=== PATIENT | female | born 1950 | race Hispanic/Latino ===

== ENCOUNTER 2017-08-04 07:31 | Day surgery (SDC) | payer BC, MEDICARE ==
[2017-08-04 07:49] VITALS: BMI 28.3
[2017-08-04] MEDS ORDERED: Sodium Chloride 0.9% 1,000 ML IV STA (08:19)
[2017-08-04] MEDS ORDERED: Morphine 4 MG/ML VIAL ONE (08:45)
[2017-08-04] MEDS ORDERED: Sodium Chloride 0.9% 1,000 ML ONE (08:46)
[2017-08-04 09:03] LABS: BASO # 0.1 K/uL (0.0-0.2); BASO % 0.5 % (0.0-2.0); EOS % 0.2 % (0.0-4.0); LYMPH # 1.5 K/uL (1.0-4.3); LYMPH % 10.7 % (20.0-40.0); MEAN CELL VOLUME 90.8 fL (81.0-99.0); MEAN CORPUSCULAR HEMOGLOBIN 30.8 pg (27.0-31.0); MEAN CORPUSCULAR HGB CONC 33.9 g/dL (33.0-37.0); MEAN PLATELET VOLUME 7.9 fL (7.2-11.7); MONO # 1.6 K/uL (0.0-0.8); MONO % 11.2 % (0.0-10.0); NEUT # 10.8 K/uL (1.8-7.0); NEUT % 77.4 % (50.0-75.0); RBC 4.22 Mil/uL (3.80-5.20); RED CELL DISTRIBUTION WIDTH 13.5 % (11.5-14.5); WHITE BLOOD COUNT 13.9 K/uL (4.8-10.8)
--- NOTE | 2017-08-04 09:15 | C.PDOC ---
History Of Present Illness Patient with history of renal artery stenosis and kidney stones presents to ED with c/o right flank pain x 3 days, radiating to the right groin and vagina. Pt denies any injury. Pt was trying Tylenol with minimal improvement. Patient reports vomiting and denies dysuria, diarrhea or any other complaints at this time. Time Seen by Provider: 08/04/17 07:57 Chief Complaint (Nursing): Female Genitourinary History Per: Patient History/Exam Limitations: no limitations Onset/Duration Of Symptoms: Days Current Symptoms Are (Timing): Still Present Location Of Pain/Discomfort: Other (right flank) Past Medical History Reviewed: Historical Data, Nursing Documentation, Vital Signs Vital Signs: Last Vital Signs Temp 98.6 F 08/04/17 13:27 Pulse 68 08/04/17 13:27 Resp 18 08/04/17 13:27 BP 108/66 08/04/17 13:27 Pulse Ox 98 08/04/17 14:02 - Medical History PMH: Anxiety, Depression, Gastrointestinal Ulcer, HTN, Kidney Stones, Chronic Kidney Disease (blockage in kidney opened by balloon) Surgical History: No Surg Hx Denies: Pacemaker - [facility] Procedures CLOSED ENDOSCOPIC BIOPSY OF LARGE INTESTINE (10/02/14) EXCIS KNEE SEMILUN CARTL (06/30/05) MAGNETIC RESONANCE IMAGING OF MUSCULOSKELETAL (08/31/99) OTHER REPAIR OF KNEE (06/30/05) PHYSICAL THERAPY NEC (09/10/99) Family History: States: No Known Family Hx - Social History Hx Alcohol Use: Yes (SOCIALLY) Hx Substance Use: No - Immunization History Hx Tetanus Toxoid Vaccination: No Hx Influenza Vaccination: Yes Hx Pneumococcal Vaccination: No Review Of Systems Constitutional: Negative for: Fever, Chills Gastrointestinal: Positive for: Vomiting. Negative for: Abdominal Pain Genitourinary: Negative for: Dysuria, Hematuria Musculoskeletal: Positive for: Other (Flank pain ) Skin: Negative for: Rash Physical Exam - Physical Exam Appears: Non-toxic, No Acute Distress Skin: Warm, Dry, No Rash Head: Atraumatic, Normacephalic Oral Mucosa: Moist Neck: Supple Cardiovascular: Rhythm Regular Respiratory: Normal Breath Sounds, No Rales, No Rhonchi, No Wheezing Gastrointestinal/Abdominal: Soft, No Tenderness, No Guarding, No Rebound Back: No CVA Tenderness Extremity: Normal ROM, Capillary Refill (<2 seconds) Neurological/Psych: Oriented x3 ED Course And Treatment - Laboratory Results Result Diagrams: 08/04/17 08:58 08/04/17 08:58 O2 Sat by Pulse Oximetry: 98 (RA) Pulse Ox Interpretation: Normal - CT Scan/US CT abdomen/pelvis Other Rad Studies (CT/US): Read By Radiologist, Radiology Report Reviewed CT/US Interpretation: Accession No. : [id number]. Patient Name / ID : NATASHA Lockhart / [id number]. Exam Date : 08/04/2017 09:03:41 ( Approved ) . Study Comment : Sex / Age : F / 67Y. Creator : Gilson Del Valle MD. Dictator : Gilson Del Valle MD. Fish And Wildlife Technician : Production Manufacturing Worker : Gilson Del Valle MD. Approver2 : Report Date : 08/04/2017 11:13:47. My Comment : . PROCEDURE: CT Abdomen and Pelvis without intravenous contrast. HISTORY: right flank pain. COMPARISON: None. TECHNIQUE: Without contrast.. Contrast Dose: 0. Radiation dose: Total exam DLP = 834.23 mGy-cm. This CT exam was performed using one or more of the following dose reduction techniques: Automated exposure control, adjustment of the mA and/or kV according to patient size, and/or use of iterative reconstruction technique. FINDINGS: LOWER THORAX : Unremarkable. LIVER: Unremarkable. No gross lesion or ductal dilatation. GALLBLADDER AND BILE DUCTS: Mildly thickened wall, nonspecific. No calcified gallstones. No pericholecystic fluid. PANCREAS: Unremarkable. No gross lesion or ductal dilatation. SPLEEN: Unremarkable. ADRENALS: Unremarkable. No mass. KIDNEYS AND URETERS: Mild right hydronephrosis. No renal calculus. No mass. Mild right hydroureter. There is a 3-4 mm calculus at the right ureterovesical junction with mild hydroureter. Multiple pelvic phleboliths are also noted. Multifocal cortical scarring in left kidney. Multiple calcifications in left kidney, likely parenchymal. No hydronephrosis. VASCULATURE: Unremarkable. No aortic aneurysm. BOWEL: Unremarkable. No obstruction. No gross mural thickening. Moderate retained feces. APPENDIX: Not positively identified. No secondary findings to suggest acute appendicitis. PERITONEUM: Unremarkable. No free fluid. No free air. LYMPH NODES: Unremarkable. No enlarged lymph nodes. BLADDER: Nondistended. REPRODUCTIVE: Unremarkable uterus. BONES: No acute fracture. OTHER FINDINGS: None. IMPRESSION: Probable obstructing 3-4 mm calculus at the right ureterovesical junction with mild right hydroureteronephrosis. Multifocal left renal cortical scarring and probable parenchymal calcifications. Nonspecific. Mild nonspecific thickening of gallbladder wall without calcified stones. Please correlate clinically. Retained feces. Progress Note: Plan: plan: labs, UA, CT w/o constrast. Case was d/Joaquin who came to ED and evaluated patient at [facility]. Patient with 3 days of renal colic symptoms, underlying kidney abnormalities and ? UTI will need stent placement. Accepted by to the same day surgery. Disposition - Disposition Disposition: HOSPITALIZED Disposition Time: 14:02 Condition: STABLE - Clinical Impression Clinical Impression: Renal colic on right side - PA / ACLS NURSE / Resident Statement MD/DO has reviewed & agrees with the documentation as recorded. - Scribe Statement The provider has reviewed the documentation as recorded by the Maricarmen Gan All medical record entries made by the Maricarmen were at my direction and personally dictated by me. I have reviewed the chart and agree that the record accurately reflects my personal performance of the history, physical exam, medical decision making, and the department course for this patient. I have also personally directed, reviewed, and agree with the discharge instructions and disposition. Decision To Admit - Pt Status Changed To: Hospital Disposition Of: SDS- Endo,OR,Cath,IR - . Bed Request Type: Same Day Surgery Admitting Physician: Danni Ruiz Patient Diagnosis: Renal colic on right side
[2017-08-04 09:20] LABS: ALB/GLOB RATIO 1.1 (1.0-2.1); ALBUMIN 3.8 g/dL (3.5-5.0); CALCIUM 8.5 mg/dl (8.6-10.4)
[2017-08-04 10:54] LABS: URINE BILIRUBIN NEGATIVE (NEGATIVE); URINE BLOOD 3+ (NEGATIVE); URINE CLARITY Clear (Clear); URINE COLOR Straw (YELLOW); URINE GLUCOSE (UA) NORMAL (Normal); URINE LEUKOCYTE ESTERASE 1+ Leu/uL (Negative); URINE NITRATE NEGATIVE (NEGATIVE); URINE PROTEIN NEGATIVE (NEGATIVE); URINE UROBILINOGEN NORMAL mg/dL (0.2-1.0)
--- NOTE | 2017-08-04 11:15 | CT ---
PROCEDURE: CT Abdomen and Pelvis without intravenous contrast HISTORY: right flank pain COMPARISON: None. TECHNIQUE: Without contrast.. Contrast Dose: 0 Radiation dose: Total exam DLP = 834.23 mGy-cm. This CT exam was performed using one or more of the following dose reduction techniques: Automated exposure control, adjustment of the mA and/or kV according to patient size, and/or use of iterative reconstruction technique. FINDINGS: LOWER THORAX: Unremarkable. LIVER: Unremarkable. No gross lesion or ductal dilatation. GALLBLADDER AND BILE DUCTS: Mildly thickened wall, nonspecific. No calcified gallstones. No pericholecystic fluid. PANCREAS: Unremarkable. No gross lesion or ductal dilatation. SPLEEN: Unremarkable. ADRENALS: Unremarkable. No mass. KIDNEYS AND URETERS: Mild right hydronephrosis. No renal calculus. No mass. Mild right hydroureter. There is a 3-4 mm calculus at the right ureterovesical junction with mild hydroureter. Multiple pelvic phleboliths are also noted. Multifocal cortical scarring in left kidney. Multiple calcifications in left kidney, likely parenchymal. No hydronephrosis. VASCULATURE: Unremarkable. No aortic aneurysm. BOWEL: Unremarkable. No obstruction. No gross mural thickening. Moderate retained feces. APPENDIX: Not positively identified. No secondary findings to suggest acute appendicitis. PERITONEUM: Unremarkable. No free fluid. No free air. LYMPH NODES: Unremarkable. No enlarged lymph nodes. BLADDER: Nondistended REPRODUCTIVE: Unremarkable uterus. BONES: No acute fracture. OTHER FINDINGS: None. IMPRESSION: Probable obstructing 3-4 mm calculus at the right ureterovesical junction with mild right hydroureteronephrosis. Multifocal left renal cortical scarring and probable parenchymal calcifications. Nonspecific. Mild nonspecific thickening of gallbladder wall without calcified stones. Please correlate clinically. Retained feces.
[2017-08-04] MEDS ORDERED: cefTRIAXone IV 1 gm in Dextros 0 ML IVPB ONE (14:20)
[2017-08-04] MEDS ORDERED: Iohexol 240 (50 ml) ONE (14:20)
[2017-08-04] MEDS ORDERED: Lidocaine 2% Jelly (Uro-Jet) ONE (14:21)
[2017-08-04] MEDS ORDERED: Lactated Ringer's 1,000 ML IV ONE (15:02)
[2017-08-04] MEDS ORDERED: Propofol 10 mg/ml Inj (20 ML) ONE ×2 (15:09)
[2017-08-04] MEDS ORDERED: Midazolam 2 MG/2 ML VIAL ONE (15:09)
[2017-08-04] MEDS ORDERED: HYDROmorphone 0.5 mg/0.5 ml ISec IVP PRN (15:15)
--- NOTE | 2017-08-04 15:31 | RAD ---
HISTORY: renal colic COMPARISON: CT abdomen pelvis without oral or IV contrast performed 08/04/17 FINDINGS: BOWEL: Nonspecific bowel gas pattern. BONES: Osseous demineralization. Degenerative changes. Tiny calcifications within the left upper quadrant measuring maximally 2 mm, consistent with renal calculi. OTHER FINDINGS: Numerous pelvic calcifications, likely phleboliths. Surgical clips noted at the level of the left L3 vertebral body. IMPRESSION: Tiny calcifications within the left upper quadrant measuring maximally 2 mm, consistent with renal calculi.
--- NOTE | 2017-08-04 15:46 | CP.PCM.CON ---
Past Patient History - Tetanus Immunizations Tetanus Immunization: Unknown - Past Social History Smoking Status: Never Smoked - CARDIAC Hx Hypertension: Yes Hx Pacemaker: No - NEUROLOGICAL Hx Paralysis: No - RENAL Hx Chronic Kidney Disease: Yes (blockage in kidney opened by balloon) Hx Kidney Stones: Yes - HEMATOLOGICAL/ONCOLOGICAL Hx Blood Transfusions: No - MUSCULOSKELETAL/RHEUMATOLOGICAL Hx Musculoskeletal Disorders: No - GASTROINTESTINAL Hx Constipation: Yes Hx Irritable Bowel: Yes - PSYCHIATRIC Hx Anxiety: Yes Hx Depression: Yes Hx Substance Use: No - SURGICAL HISTORY Hx Surgeries: Yes (kidney balloon) - ANESTHESIA Hx Anesthesia: Yes Hx Anesthesia Reactions: No Hx Malignant Hyperthermia: No Meds Allergies/Adverse Reactions: Allergies Allergy/AdvReac Type Severity Reaction Status Date / Time No Known Allergies Allergy Verified 08/04/17 07:43 - Medications Medications: Current Medications Hydromorphone HCl (Dilaudid) 0.5 mg IVP Q10M PRN PRN Reason: Pain, moderate (4-7) Stop: 08/04/17 17:15 Results - Vital Signs Recent Vital Signs: Last Vital Signs Temp 97.9 F 08/04/17 14:37 Pulse 75 08/04/17 14:37 Resp 20 08/04/17 14:37 BP 110/70 08/04/17 14:37 Pulse Ox 98 08/04/17 14:39 - Labs Result Diagrams: 08/04/17 08:58 08/04/17 08:58 Labs: Laboratory Results - last 24 hr 08/04/17 08/04/17 08/04/17 08:58 08:58 10:41 WBC 13.9 H RBC 4.22 Hgb 13.0 Hct 38.4 MCV 90.8 MCH 30.8 MCHC 33.9 RDW 13.5 Plt Count 346 MPV 7.9 Neut % (Auto) 77.4 H Lymph % (Auto) 10.7 L [place] % (Auto) 11.2 H Eos % (Auto) 0.2 Baso % (Auto) 0.5 Neut # 10.8 H Lymph # 1.5 Gulf # 1.6 H Eos # 0.0 Baso # 0.1 Sodium 130 L Potassium 4.2 Chloride 96 L Carbon Dioxide 26 Anion Gap 11 BUN 21 H Creatinine 1.5 H Est GFR ( Amer) 42 Est GFR (Non-Af Amer) 35 Random Glucose 123 H Calcium 8.5 L Total Bilirubin 0.8 AST 32 ALT 27 Alkaline Phosphatase 48 Total Protein 7.3 Albumin 3.8 Globulin 3.4 Albumin/Globulin Ratio 1.1 Lipase 45 Urine Color Straw Urine Clarity Clear Urine pH 6.0 Ur Specific [place] 1.004 Urine Protein Negative Urine Glucose (UA) Normal Urine Ketones Negative Urine Blood 3+ H Urine Nitrate Negative Urine Bilirubin Negative Urine Urobilinogen Normal Ur Leukocyte Esterase 1+ H Urine WBC (Auto) 6 H Urine RBC (Auto) 22 H
--- NOTE | 2017-08-04 15:49 | PCM.SURG1 ---
Surgeon's Initial Post Op Note - Surgeon's Notes Surgeon: Magalys Ruiz Ctc Operator: none Type of Anesthesia: General Mask Pre-Operative Diagnosis: R RENAL COLIC Operative Findings: R HYDRONEPHROSIS Post-Operative Diagnosis: SAME Operation Performed: CYSTO, BILAT RTG PYELOGRAM, R STENT INSERTION Specimen/Specimens Removed: URINE Estimated Blood Loss: EBL {In ML}: 0 Blood Products Given: N/A Post-Op Condition: Good Date of Surgery/Procedure: 08/04/17 Time of Surgery/Procedure: 15:55
[2017-08-04 17:28] VITALS: RESP 18; O2SAT 100
[2017-08-04 18:36] VITALS: BP 103/80; PULSE 63; TEMP 98
--- NOTE | 2017-08-05 08:52 | RAD ---
INTRAOPERATIVE FLUOROSCOPY HISTORY: Right hydronephrosis. TECHNIQUE/FINDINGS: Fluoroscopic guidance was provided by Radiology department. Please see operative report for full details. Eleven images were provided. Total fluoroscopy time was 36.6 seconds IMPRESSION: As above
--- NOTE | 2017-08-05 14:11 | CARD ---
APPROVED REPORT EKG Measurement Heart [id number] <Conclusion> Normal sinus rhythm Normal ECG
== END 2017-08-04 19:50 | disposition home or self-care (01) ==
LOC: C.ER 07:31 → C.SDS 14:25
PROVIDERS: ATTEND Urology
DX: N23 Unspecified renal colic (principal); I12.9 Hypertensive chronic kidney disease with stage 1 through stage 4 chronic kidney disease, or unspecified chronic kidney disease; N18.9 Chronic kidney disease, unspecified; Z87.442 Personal history of urinary calculi; F41.9 Anxiety disorder, unspecified; F32.9 Major depressive disorder, single episode, unspecified; N13.30 Unspecified hydronephrosis
CPT/HCPCS: 52332; 74019; 74176; 80053; 81001; 83690; 85025; 87086; 96360; 96365; 96374; J0696; J2270; J2405; J7040; J7120